=== PATIENT | female | born 1945 | race Hispanic/Latino ===

== ENCOUNTER 2018-07-08 08:11 | Inpatient (IN) | payer MEDICARE, OTHER ==
--- NOTE | 2018-07-01 14:56 | Diagnostic Imaging Report ---
EXAMINATION: CHEST 2 VIEWS INDICATION: Cystocele. Urology surgery preop COMPARISON: None FINDINGS: TUBES and LINES: None. LUNGS: Lungs are well inflated. Lungs are clear. There is no evidence of pneumonia or pulmonary edema. PLEURA: No pleural effusion or pneumothorax. HEART AND MEDIASTINUM: The cardiomediastinal silhouette is unremarkable. BONES AND SOFT TISSUES: No acute osseous lesion. Soft tissues are unremarkable. UPPER ABDOMEN: No free air under the diaphragm. IMPRESSION: No acute thoracic abnormality. Signed by: Dr. Nico Russell M.D. on 07/01/2018 2:52 PM
[2018-07-01 15:08] LABS: BASOPHILS % 0.2 % (0.0-1.0); EOSINOPHILS # (AUTO) 0.1 (0.0-0.4); EOSINOPHILS % 1.1 % (0.0-6.0); HEMATOCRIT 37.4 % (34.2-44.1); HEMOGLOBIN 12.4 g/dL (12.0-16.0); LYMPHOCYTES # (AUTO) 2.2 (1.0-3.2); LYMPHOCYTES % 47.9 % (18.0-39.1); MEAN CORPUSCULAR HEMOGLOBIN 31.5 pg (28-32); MEAN CORPUSCULAR HGB CONC 33.2 g/dL (31-35); MEAN CORPUSCULAR VOLUME 94.9 fL (81-99); MONOCYTES # (AUTO) 0.7 (0.2-0.8); MONOCYTES % 15.1 % (4.4-11.3); NEUTROPHILS # (AUTO) 1.7 (2.1-6.9); NEUTROPHILS % 35.7 % (38.7-80.0); PLATELET COUNT 228 x10e3/uL (140-360); RED BLOOD COUNT 3.94 x10e6/uL (3.6-5.1); RED CELL DISTRIBUTION WIDTH 11.9 % (11.7-14.4)
[~2018-07-08] VITALS: Ht 157.5 cm; Wt 66.3 kg
[~2018-07-08 08:11] MED LIST: CETIRIZINE HCL10 MG PO; IMMUNE SYSTEM; PANTOPRAZOLE SO40 MG PO; PREMPRO 0.625-1 EAC1 PO; SYNTHROID100 MCG PO; [UNRECOGNIZED DRUG - OTHER] PO
--- OUTSIDE RECORDS SUMMARY | 2018-07-08 08:13 | XMS REPORT | Summary of Care ---
Author Author [facility] Outpatient Imaging [facility] [place] Address Unknown Phone Unavailable Encounter HQ Encntr_alias(FIN) [id number] Date(s): 02/09/15 - 02/09/15 [facility] Outpatient Imaging [id number] [place], [place] [address] [phone] Discharge Disposition: Home Attending Physician: Inga Thorne MD Vital Signs No data available for this section Problem List No data available for this section Allergies, Adverse Reactions, Alerts Substance Reaction Severity Status NKDA Active Medications No data available for this section Results No data available for this section Immunizations No data available for this section Procedures No data available for this section Social History No data available for this section Assessment and Plan No data available for this section
--- OUTSIDE RECORDS SUMMARY | 2018-07-08 08:13 | XMS REPORT | Summary of Care ---
Author Organization Unknown Address Unknown Phone Unavailable Encounter HQ Richardr_chaz(DEMAR) [id number] Date(s): 01/17/14 - 01/17/14 [facility] Outpatient Imaging [address] Discharge Disposition: Home Physician Attending: Davion Snow MD Reason for Visit [phone] - HEMATURIA NOS Problem List No data available for this section Allergies, Adverse Reactions, Alerts Substance Reaction Severity Status NKDA Active Medications No data available for this section Medications Administered During Your Visit No data available for this section Immunizations No data available for this section
--- OUTSIDE RECORDS SUMMARY | 2018-07-08 08:13 | XMS REPORT | Clinical Summary ---
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 Active ESTROGEN,CON/M-PROGEST Take by 0 ACET (PREMPRO ORAL) mouth. Active fexofenadine (TATE) Take 180 mg 0 180 MG tablet by mouth daily. Active diphenhydrAMINE Take 25 mg by 0 (BENADRYL) 25 mg tablet mouth every night as needed for Sleep. Active cetirizine (ZYRTEC) 10 MG Take 10 mg by 0 tablet mouth daily. Active Missing or Non-Formulary 0 Medication Active cevimeline (EVOXAC) 30 mg Take 30 mg by 0 capsule mouth 3 (three) times daily. Active cycloSPORINE (RESTASIS) 1 drop 2 0 0.05 % ophthalmic (two) times emulsion daily. Active brimonidine-timolol Place 1 drop 0 (COMBIGAN) 0.2-0.5 % into both ophthalmic solution eyes every 12 (twelve) hours. Active Problems Not on file Social History Date Tobacco Use Types Packs/Day Years Used Never Smoker Alcohol Use Drinks/Week oz/Week Comments No Sex Assigned at Date Recorded Not on file Industry Job Start Date Occupation Not on file Not on file Not on file Travel End Travel History Travel Start No recent travel history available. Last Filed Vital Signs Not on file Plan of Treatment Not on file Results Not on fileafter 07/07/2017 Insurance Payer Benefit Subscriber ID Type Phone Address Plan / Group MEDICARE MEDICARE A xxxxxxxxxx Medicare B xxxxxxxxx Other Govt FOR LIFE (, [place], [facility], etc.)
--- OUTSIDE RECORDS SUMMARY | 2018-07-08 08:13 | XMS REPORT | Summary of Care ---
Author Organization Unknown Address Unknown Phone Unavailable Encounter HQ Richardr_chaz(DEMAR) [id number] Date(s): 02/09/14 - 02/09/14 [facility] Outpatient Imaging [address] Discharge Disposition: Home Physician Attending: Inga Thorne MD Reason for Visit [phone] - ABDMNAL MASS EP Problem List No data available for this section Allergies, Adverse Reactions, Alerts Substance Reaction Severity Status NKDA Active Medications No data available for this section Medications Administered During Your Visit No data available for this section Immunizations No data available for this section
--- OUTSIDE RECORDS SUMMARY | 2018-07-08 08:13 | XMS REPORT | Continuity of Care Document ---
Author Author [facility] Interface Address Unknown Phone Unavailable Problems Problem Status Onset Date Classification Date Reported Comments Source 719.45 - JOINT PAIN-PELV Active 03/07/2015 [facility] 719.41 - JOINT PAIN-SHLD Active 11/11/2013 [facility] V76.12 - SCREEN MAMMOGRA Active 04/06/2012 [facility] 789.09 - ABDMNAL PAIN OT Active 05/27/2011 [facility] Secondary Sjogren's syndrome Active Problem 04/05/2018 [facility] Rheumatoid arthritis with rheumatoid factor Active Problem 04/05/2018 [facility] [place] Osteopenia of multiple sites Active Problem 04/05/2018 [facility] [place] Medications Medication Details Route Status Patient Instructions Ordering Provider Order Date Source Vitamin D (Ergocalciferol) 1 capsule Orally Active 50,000U Orally once a week Reyes 09/26/2018 [facility] [place] SalivaMAX as directed Mouth/Throat Active - Mouth/Throat Reyes 03/30/2018 [facility] [place] Prempro 1 tablet Orally Active 0.45-1.5 MG Orally Once a day Reyesyumiko Hoyos Synthroid 1 tablet every morning on an empty stomach Orally Active 100 mcg Orally Once a day Slater [facility] [place] Salagen 1 tablet NA Active 7.5MG four times a day Slater [facility] [place] Tylenol Arthritis Pain 2 tablets as needed Orally Active 650 MG Orally every 8 hrs Eric [place]oyos Betamethasone Dipropionate 1 application to affected area Externally Active 0.05 % Externally Once a day Eric [place]oyos Padmaja-D 12 Hour 1 tablet Orally Active 60-120 MG Orally Once a week Eric [place] Biotin as directed Orally Active 5 MG/ML Orally [facility] [place] XIIDRA 1 DROP PER EYE NA Active 5% TWICE A DAY Reyesyumiko Hoyos Tylenol Arthritis Pain 1 tablets Orally Active 650 MG Orally as needed Reyesyumiko Hoyos Restasis 1 into affected eye Ophthalmic Active 0.05 % Ophthalmic Twice a day Eric [place]os Vitamin D (Ergocalciferol) TAKE 1 CAPSULE ONCE A WEEK NA Active 50,000U Eric [place] Allergies, Adverse Reactions, Alerts Substance Category Reaction Severity Reaction type Status Date Reported Comments Source Latex<sup>1</sup> Assertion Drug allergy Active 05/27/2011 Data migrated from [employer] on 08/16/15. Originally documented as LATEX. itching LISA Roberto Adverse Reaction Info Not Available Adverse Reaction Active 03/30/2018 [facility] [place] Immunizations Immunization Date Given Site Status Last Updated Comments Source Results Order Name Results Value Reference Range Date Interpretation Comments Source Breast Mammo Diag ERIC w jose armando incl CAD MA Breast Mammo Diag ERIC w jose armando incl CAD MA BILATERAL DIGITAL DIAGNOSTIC MAMMOGRAM 3D/2D WITH CAD: 01/27/2018 CLINICAL: /T85.49xa Other Mechanical Complication Of Breast Prosthesis And Implant, Initial Encounter. Current study was evaluated with a Computer Aided Detection (CAD) system. COMPARISON:Comparison is made to exams dated: 02/13/2016 mammogram, 02/09/2015 mammogram, 04/17/2012 mammogram, and 04/01/2011 mammogram - [facility]. TECHNIQUE: Digital Breast Tomosynthesis was performed and utilized for Interpretation. Current study was also evaluated with a Computer Aided Detection (CAD) system. FINDINGS: The tissue of both breasts is heterogeneously dense, which could obscure detection of small masses. Interval rupture of the left prepectoral saline implant since 02/13/16. Right breast implant is stable. No significant masses, calcifications, or other findings are seen in either breast. There has been no significant interval change. IMPRESSION: BENIGN RECOMMENDATION:There is no mammographic evidence of malignancy. A 1 year screening mammogram is recommended.(01/28/2019) This exam was interpreted at [id number] for JAVI Walker 15. Professional services are provided by the [facility]. Mor Lamb M.D. cm/:01/27/2018 11:36:28 [employer] Professor(s): Maura Costa [facility] letter sent: BI-RADS 1/2 Dense Mammogram BI-RADS: 2 Benign 01/27/2018 - - Read by: Cornelio Gomez MD Dictated Date/time: 01/27/18 11:36 Electronically Signed by: Cornelio Gomez MD 01/27/18 11:36 FINAL REPORT [facility]NA [facility] Digital Mammo Screen Eric MA w jose armando Digital Mammo Screen Eric MA w jose armando - DIGITAL MAMMO SCREEN ERIC MA W JOSE ARMANDO BILATERAL DIGITAL SCREENING MAMMOGRAM 3D/2D WITH CAD: 02/13/2016 CLINICAL: Routine. 2D digital mammographic images and 3D digital tomosynthesis images were obtained in the CC and MLO projections. Current study was evaluated with a Computer Aided Detection (CAD) system. Comparison is made to exams dated: 02/09/2015 mammogram, 04/17/2012 mammogram, 04/01/2011 mammogram - [facility], 10/13/2009 mammogram, 12/06/2006 mammogram and [facility] The tissue of both breasts is heterogeneously dense, which could obscure detection of small masses. Bilateral breast implants are stable. No significant masses, calcifications, or other findings are seen in either breast. There has been no significant interval change. IMPRESSION: NEGATIVE There is no mammographic evidence of malignancy. A 1 year screening mammogram is recommended. Eligio oneil/penrad:02/14/2016 09:34:07 [employer] Professor: Maura Costa [facility] This exam was dictated and interpreted by [id number] for LISA Roa. letter sent: Normal [facility] Mammogram BI-RADS: 1 Negative 02/13/2016 - - Read by: Eligio Iniguez MD Dictated Date/time: 02/14/16 09:34 Electronically Signed by: Eligio Iniguez MD 02/14/16 09:34 FINAL REPORT ANA [facility] Abdomen/Pelvis w IV contrast CT Abdomen/Pelvis w IV contrast CT Study: CT ABDOMEN AND PELVIS WITH CONTRAST Clinical Indication: LLQ ABD PAIN; 3 weeks duration Comparison: CT abdomen pelvis 01/17/2014 Technique: Axial images with sagittal and coronal reconstructions were obtained following oral and nonionic intravenous contrast, Omnipaque [address] Radiation Dose: VWV=684.51 mGy-cm FINDINGS: The lung bases demonstrate mild emphysema and interstitial scarring. Bilateral breast augmentation is noted. There is fatty infiltration of the liver. Stable small hepatic cysts are noted. The gallbladder wall is minimally thickened and irregular suggesting either small polyps. The common duct is not dilated. The spleen appears normal. Stable fat density 1.1 cm left upper pole renal lesion is consistent with angiomyolipoma. There is a possible punctate right lower pole similar lesion. The adrenals and pancreas are not remarkable. Extensive diverticular changes involve the sigmoid and there is moderate constipation. Scattered diverticula are noted elsewhere. No mesenteric inflammatory change is noted. The uterus, adnexa and urinary bladder are not remarkable. No adenopathy or ascites is seen. There is minor spondylosis. IMPRESSION: 1. No acute abnormality. 2. Diverticulosis and constipation. 3. Fatty liver with possible tiny gallbladder polyps. SL: [id number] 09/11/2015 - - Read by: Mt Pham MD Dictated Date/time: 09/11/15 17:02 Electronically Signed by: Mt Pham MD 09/11/15 17:12 FINAL REPORT ANA Bell Chest 2 views DX Chest 2 views DX PA and LATERAL CHEST (2 views) HISTORY: dyspnea. Rheumatoid arthritis. There are no prior studies available for comparison. FINDINGS: The lungs are clear. There are no pleural effusions. The heart and pulmonary vasculature are within normal limits. There are mild degenerative changes involving the thoracic spine. The regional skeleton is otherwise unremarkable. Note is made of bilateral mammary prostheses. CONCLUSION: 1. No active disease. 2. Note is made of bilateral mammary prostheses. Coding: Chest 2 views CPT Code: 29985 SL: 16 Blaise Goldstein M.D. 06/02/2015 - - Read by: Blaise Goldstein MD Dictated Date/time: 06/02/15 15:45 Electronically Signed by: Blaise Goldstein MD 06/02/15 15:46 FINAL REPORT ANA [facility] Spine lumbar wo contrast MRI Spine lumbar wo contrast MRI PROCEDURE : LUMBAR SPINE MRI REASON FOR EXAM: 714.0. Rheumatoid arthritis. 724.02. Spinal stenosis of lumbar region. Note: The patient reports left hip pain. COMPARISON: Abdomen and pelvic CT 01/17/2014. TECHNIQUE: Unenhanced axial and sagittal MR images of the lumbar spine were performed. FINDINGS: Five non-rib bearing lumbar type vertebral bodies are assumed. There is approximately 3 to 4 mm anterolisthesis of L4 on L5. There is no demonstrable spondylolysis. There are anterior marginal osteophytes at T11-T12 and L4-L5. There are multilevel mild Modic type II degenerative changes of the vertebral endplates. There are scattered subcentimeter foci of T1 and T2 hyperintensity in the marrow of the spine which may represent benign hemangiomas or focal fatty marrow change. There is no compression deformity. There is disc desiccation at all levels of the lumbar spine and visualized lower thoracic spine. There is a 1 cm benign angiomyolipoma in the upper pole of the left kidney and 4 mm in the mid to lower pole of the right kidney. There is colonic diverticulosis. The conus medullaris terminates at the level of L2. The visualized lower thoracic spinal cord demonstrates normal signal intensity. T12-L1: Facet arthropathy. No significant foraminal narrowing or spinal stenosis. L1-L2: Mild anterior disc space narrowing. Left posterolateral disc bulging measuring a maximal AP dimension of approximately 3 mm. Facet arthropathy. Mild left foraminal narrowing. No significant right foraminal narrowing or spinal stenosis. L2-L3: Facet arthropathy. No significant foraminal narrowing or spinal stenosis. L3-L4: Facet arthropathy. No significant foraminal narrowing or spinal stenosis. L4-L5: Mild to moderate diffuse disc space narrowing. Anterior and lateral disc bulging. Broad-based posterior disc bulge/protrusion most pronounced in the posterolateral aspects measuring a maximal AP dimension of approximately 4 mm. Facet arthropathy. Thickening of the ligamentum flavum. Mild to moderate bilateral foraminal narrowing most pronounced medially. Moderate spinal stenosis. L5-S1: Mild posterior disc space narrowing. Broad-based posterior disc bulging measuring a maximal AP dimension of approximately 2 to 3 mm. Facet arthropathy. Thickening of the ligamentum flavum. Mild bilateral foraminal narrowing. Mild to moderate spinal stenosis. IMPRESSION: 1. Grade 1 anterolisthesis of L4 on L5. 2. [place] facet arthropathy and disc desiccation. 3. Anterior disc space narrowing, left posterolateral disc bulging and mild left foraminal narrowing at L1-L2. 4. Spondylosis, diffuse disc space narrowing, broad-based posterior disc bulge/protrusion, mild to moderate bilateral foraminal narrowing and moderate spinal stenosis at L4-L5. 5. Posterior disc space narrowing, broad-based posterior disc bulging, mild bilateral foraminal narrowing and mild to moderate spinal stenosis at L5-S1. 6. 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 7. Colonic diverticulosis. SL: 15 03/17/2015 - - Read by: Carlos Vargas MD Dictated Date/time: 03/17/15 21:32 Electronically Signed by: Carlos Vargas MD 03/17/15 22:15 FINAL REPORT LISA Patelland Hip bilat w pelvis and both lat hips DX Hip bilat w pelvis and both lat hips DX REASON FOR EXAM: 719.45. COMPARISON: None. FINDINGS: AP view of the pelvis. Frog-leg view of each hip. Three images are submitted. The hip joint spaces are preserved without demonstrable arthritic change of the hips. There are mild degenerative changes of the pubic symphysis with joint space narrowing and subchondral sclerosis. There is facet arthropathy of the visualized lower lumbar spine. The sacroiliac joints are unremarkable. There is no demonstrable fracture, dislocation or osseous lesion. IMPRESSION: 1. Degenerative changes of the pubic symphysis and visualized lower lumbar spine. 2. Otherwise unremarkable views of the pelvis and hips. SL: 15 03/07/2015 - - Read by: Carlos Vargas MD Dictated Date/time: 03/07/15 17:15 Electronically Signed by: Carlos Vargas MD 03/07/15 17:22 FINAL REPORT LISA PEREZ [place] Digital Mammo Screen Eric MA w jose armando Digital Mammo Screen Eric MA w jose armando - DIGITAL MAMMO SCREEN ERIC MA W JOSE ARMANDO BILATERAL DIGITAL SCREENING MAMMOGRAM 3D/2D WITH CAD: 02/09/2015 CLINICAL: Routine. 2D digital mammographic images and 3D digital tomosynthesis images were obtained in the CC and MLO projections. Current study was evaluated with a Computer Aided Detection (CAD) system. Comparison is made to exams dated: 04/17/2012 mammogram, 04/01/2011 mammogram - [facility] and [facility]. The tissue of both breasts is heterogeneously dense, which could obscure detection of small masses. Bilateral saline prepectoral breast implants are noted and imaged with routine and implant displaced views. Implants obscure breast parenchyma making mammographic interpretation difficult. There are benign appearing calcifications in both breasts. There also are benign appearing densities in both breasts. No significant masses, calcifications, or other findings are seen in either breast. There has been no significant interval change. IMPRESSION: BENIGN There is no mammographic evidence of malignancy. A 1 year screening mammogram is recommended. Ronnie Gaines M.D. ap/penrad:02/10/2015 10:17:37 [employer] Professor: Maura Costa [facility] This exam was dictated and interpreted by [id number] for JAVI Walker 15. letter sent: Normal [facility] Mammogram BI-RADS: 2 Benign 02/09/2015 - - Read by: Ronnie Gaines MD Dictated Date/time: 02/10/15 10:17 Electronically Signed by: Ronnie Gaines MD 02/10/15 10:17 FINAL REPORT LISA Bell Pelvis Transvaginal US Pelvis Transvaginal US REASON FOR EXAM: Pelvic mass. COMPARISON: Abdomen and pelvic CT 01/17/2014. Pelvic ultrasound 06/11/2011. FINDINGS: Transvaginal ultrasound of the pelvis was performed. Static images are submitted. The uterus measures 7.2 x 3.1 x 4 cm (length x AP x width). There is a 0.84 cm intramural fibroid in the left uterine fundus, new from the comparison pelvic ultrasound. The maximal endometrial stripe thickness is 0.28 cm. The patient is postmenopausal. There are multiple subcentimeter cervical nabothian cysts which likely account for the findings of the cervix on the comparison pelvic CT. There is no demonstrable cervical mass. The ovaries are not seen. There is no demonstrable adnexal mass or pelvic free fluid. IMPRESSION: 1. Solitary subcentimeter uterine leiomyoma. 2. Multiple subcentimeter cervical nabothian cysts. 3. Nonvisualization of the ovaries. 4. Otherwise unremarkable transvaginal pelvic ultrasound. SL: 15 02/09/2014 - - Read by: Carlos Vargas MD Dictated Date/time: 02/09/14 13:35 Electronically Signed by: Carlos Vargas MD 02/09/14 13:44 FINAL REPORT LISA Bell Abdomen/Pelvis w/wo IV contrast CT Abdomen/Pelvis w/wo IV contrast CT REASON FOR EXAM: 599.70 Hematuria. COMPARISON: Reports of an MRI of the abdomen 12/26/2011, abdomen ultrasound 06/11/2011 and pelvic ultrasound 06/11/2011 were reviewed. TECHNIQUE: Unenhanced and enhanced axial helical CT images of the abdomen and pelvis were performed. Postcontrast images were performed with IV contrast only. Postcontrast reformatted coronal and sagittal images were also reviewed. ABDOMEN / PELVIC CT FINDINGS: The visualized lung bases are remarkable for mild elevation of the right diaphragm. Dependent subsegmental atelectasis. Minimal subsegmental atelectasis versus scarring in the right middle lobe and lingula. Normal heart size. There is a 1.2 cm fat containing angiomyolipoma in the upper poor cortex of the left kidney. There is a 3 mm low-density cortical lesion in the lower pole of the right kidney which may represent a cyst or angiomyolipoma but is too small to adequately characterize. There are additional tiny low-density renal cortical lesions which may represent cysts but are too small to adequately characterize: 2 mm in the mid to upper pole of the right kidney, 3 mm in the mid to upper pole of the left kidney, 3 mm in the mid left kidney and 2 mm in the lower pole of the left kidney. The kidneys are otherwise unremarkable. No demonstrable urinary tract calculus. No hydronephrosis or pyelonephritis. There a few low-density hepatic lesions likely cysts but too small to adequately characterize the largest measuring 7 mm in the posterior segment of the right hepatic lobe. The gallbladder, pancreas, spleen and adrenal glands are unremarkable. There is a nonobstructive bowel gas pattern. The stomach is nondistended limiting evaluation of the gastric yan. Scattered colonic diverticulosis without demonstrable acute diverticulitis. The appendix is normal. There is no free intraperitoneal air or ascites. There is fullness at the junction of the cervix and lower uterine segment. A mass in this location measuring approximately 4.5 cm cannot be excluded (e.g. images 76 through 79 series 4). There is a 7 mm enhancing nodule in the anterior uterine body likely a fibroid. There are a few tiny foci of air likely within the superior aspect of the vagina. There is no demonstrable abnormality of the adnexa or partially distended urinary bladder. The caliber of the abdominal aorta is within normal limits. There is no pathologic retroperitoneal lymphadenopathy. Bilateral breast implants are partially imaged. There is grade 1 anterolisthesis of L4 on L5. There are degenerative changes of the spine. There is spinal stenosis at L4-L5 secondary to degenerative changes and a posterior disc bulge/protrusion. This would be better assessed with a lumbar spine MRI. There are mild degenerative changes of the pubic symphysis. IMPRESSION: 1. There is a 1.2 cm angiomyolipoma in the upper pole of the left kidney. 2. There are several subcentimeter low-density renal cortical lesions which are too small to adequately characterize. A benign etiology is favored. 3. No demonstrable urinary tract calculus. 4. There are a few subcentimeter low-density hepatic lesions likely cysts but too small to adequately characterize. 5. Colonic diverticulosis. 6. There is fullness at the junction of the cervix and lower uterine segment. A mass in this location cannot be excluded. Further evaluation may be obtained with a transvaginal pelvic ultrasound. 7. Subcentimeter uterine fibroid. 8. Osseous findings as described above. Please correlate clinically and consider follow-up imaging as indicated. SL: 15 01/17/2014 - - Read by: Carlos Vargas MD Dictated Date/time: 01/17/14 15:06 Electronically Signed by: Carlos Vargas MD 01/17/14 16:04 FINAL REPORT ANA Bell Shoulder series Shoulder series REASON FOR EXAM: Shoulder pain. COMPARISON: None. FINDINGS: Two views of the right shoulder were performed with internal and external rotation. There is no demonstrable fracture, dislocation, arthritic change, osseous lesion or soft tissue calcification. IMPRESSION: Unremarkable right shoulder series. SL: 15 11/11/2013 - - Read by: Carlos Vargas MD Dictated Date/time: 11/11/13 16:43 Electronically Signed by: Carlos Vargas MD 11/11/13 16:49 FINAL REPORT ANA Bell Vital Signs Vital Sign Value Date Comments Source Weight 141.5 03/30/2018 [facility] Height 60 03/30/2018 [facility] [place] Temperature Oral (F) 97.4 F 03/30/2018 [facility] [place] Heart Rate 70 03/30/2018 [facility] [place] Diastolic (mm Hg) 62 03/30/2018 [facility] [place] Systolic (mm Hg) 112 03/30/2018 [facility] [place] Weight 137 08/12/2017 [facility] [place] Height 61 08/12/2017 [facility] [place] Temperature Oral (F) 98.1 F 08/12/2017 [facility] [place] Heart Rate 72 08/12/2017 [facility] [place] Diastolic (mm Hg) 70 08/12/2017 [facility] [place] Systolic (mm Hg) 132 08/12/2017 [facility] [place] Encounters Location Location Details Encounter Type Encounter Number Reason For Visit Attending Provider ADM Date DC Date Status Source OD [id number] 789.09 - ABDMNAL PAIN OT NANCY MOSQUEDA 06/11/2011 Active MH [facility] OD [id number] V76.12 - SCREEN MAMMOGRA [facility]ED[facility] [id number] Travis Chaidez 11/11/2013 11/12/2013 [facility] [id number] Davion Snwo 01/17/2014 01/18/2014 [facility] [id number] Dolar Patolia 02/09/2014 02/10/2014 [facility] [id number] Dolar Patolia 02/09/2015 02/10/2015 [facility] [id number] [facility] 03/07/2015 03/08/2015 [facility] [id number] [facility] 03/17/2015 03/18/2015 [facility] [id number] Travis Orsal 06/02/2015 06/03/2015 [facility] [id number] Lester Inamdar 09/11/2015 09/12/2015 [facility] [id number] Dolar Patolia 02/13/2016 02/14/2016 [facility] Procedures Procedure Code Date Perfomer Comments Source
--- OUTSIDE RECORDS SUMMARY | 2018-07-08 08:13 | XMS REPORT | CCD ---
Author Author Auto Generated Organization [facility] Outpatient Imaging [place] Address Unknown Phone Unavailable Care Team Providers Care Drawer Liner Name Role Phone Inga Thorne CP Allergies, Adverse Reactions, Alerts Substance Reaction Status NKDA Active
--- OUTSIDE RECORDS SUMMARY | 2018-07-08 08:13 | XMS REPORT | Summary of Care ---
Author Organization Unknown Address Unknown Phone Unavailable Encounter HQ Richardr_chaz(DEMAR) [id number] Date(s): 11/11/13 - 11/11/13 [facility] Outpatient Imaging [address] Discharge Disposition: Home Physician Attending: Travis Chaidez MD Reason for Visit 719.41 - JOINT PAIN-SHLD Problem List No data available for this section Allergies, Adverse Reactions, Alerts Substance Reaction Severity Status NKDA Active Medications No data available for this section Medications Administered During Your Visit No data available for this section Immunizations No data available for this section
--- OUTSIDE RECORDS SUMMARY | 2018-07-08 08:13 | XMS REPORT | CCD ---
Author Author Auto Generated Organization [facility] Outpatient Imaging [place] Address Unknown Phone Unavailable Care Team Providers Care Pro Shop Attendant Name Role Phone Inga Thorne CP Allergies, Adverse Reactions, Alerts Substance Reaction Status NKDA Active
--- OUTSIDE RECORDS SUMMARY | 2018-07-08 08:14 | XMS REPORT ---
Author Author Elsa Reyes [facility] eClinicalWorks Address Unknown Phone Unavailable Care Team Providers Care Manager Of Digital Name Role Phone Elsa Reyes Unavailable Allergies, Adverse Reactions, Alerts Substance Reaction Event Type N.K.D.A. Info Not Available Non Drug Allergy Problems Problem Type Condition Code Onset Dates Condition Status Problem Secondary Sjogren's syndrome M35.00 Active Problem Rheumatoid arthritis with rheumatoid factor M05.70 Active Problem Osteopenia of multiple sites M85.89 Active Assessment Secondary Sjogren's syndrome M35.00 Active Assessment Rheumatoid arthritis with rheumatoid factor M05.70 Active Medications Medication Code System Code Instructions Start Date End Date Status Dosage Prempro ND 40307966889 0.45-1.5 MG Orally Once a day Active 1 tablet Synthroid ND 49726985807 100 mcg Orally Once a day Active 1 tablet every morning on an empty stomach Salagen ND 60422899625 7.5MG four times a day Active 1 tablet Tylenol Arthritis Pain NDC 0 650 MG Orally every 8 hrs Active 2 tablets as needed Betamethasone Dipropionate ND 09940694876 0.05 % Externally Once a day Active 1 application to affected area SalivaMAX ND 72799699455 - Mouth/Throat Mar 30, 2018 Active as directed Padmaja-D 12 Hour ND 74430123344 60-120 MG Orally Once a week [place] [address] 5 MG/ML Orally Active as directed XIIDRA NDC 0 5% TWICE A DAY Active 1 DROP PER EYE Vitamin D (Ergocalciferol) ND 63422179961 50,000U Orally once a week September 26, 2018 Active 1 capsule Vital Signs Date/Time: Mar 30, 2018 BMI 27.63 Index Weight 141.5 lbs Height 60 in Temperature 97.4 F Cardiac Monitoring Heart Rate 70 /min Blood Pressure Diastolic 62 mm Hg Blood Pressure Systolic 112 mm Hg Results No Known Results Summary Purpose eClinicalWorks Submission
--- OUTSIDE RECORDS SUMMARY | 2018-07-08 08:14 | XMS REPORT ---
Author Author José Miguel Hoyos Organization eClinicalWorks Address Unknown Phone Unavailable Care Team Providers Care Hose Cementer Name Role Phone José Miguel Hoyos CP Unavailable Allergies No Known Allergies Problems Problem Type Condition Code Onset Dates Condition Status Problem Secondary Sjogren's syndrome M35.00 Active Problem Rheumatoid arthritis with rheumatoid factor M05.70 Active Problem Osteopenia of multiple sites M85.89 Active Medications No Known Medications Results No Known Results Summary Purpose eClinicalWorks Submission
--- OUTSIDE RECORDS SUMMARY | 2018-07-08 08:14 | XMS REPORT | Summary of Care ---
Author Author [facility] Outpatient Imaging [facility] [place] Address Unknown Phone Unavailable Encounter HQ Encntr_alias(FIN) [id number] Date(s): 09/11/15 - 09/11/15 [facility] [place] [id number] [place] [address], [address] [place], [place] [address]303 [phone] Discharge Disposition: Home Attending Physician: Lester Whitehead MD Vital Signs No data available for this section Problem List No data available for this section Allergies, Adverse Reactions, Alerts Substance Reaction Severity Status Latex1 Active NKDA Active 1Data migrated from [employer] on 08/16/15. Originally documented as LATEX. itching Medications No data available for this section Results No data available for this section Immunizations No data available for this section Procedures No data available for this section Social History No data available for this section Assessment and Plan No data available for this section
--- OUTSIDE RECORDS SUMMARY | 2018-07-08 08:14 | XMS REPORT ---
Author Author José Miguel Hoyos Organization eClinicalWorks Address Unknown Phone Unavailable Care Team Providers Care Bobbin Hauler Name Role Phone José Miguel Hoyos CP Unavailable Allergies No Known Allergies Problems Problem Type Condition Code Onset Dates Condition Status Problem Secondary Sjogren's syndrome M35.00 Active Problem Rheumatoid arthritis with rheumatoid factor M05.70 Active Problem Osteopenia of multiple sites M85.89 Active Medications No Known Medications Results No Known Results Summary Purpose eClinicalWorks Submission
--- OUTSIDE RECORDS SUMMARY | 2018-07-08 08:14 | XMS REPORT | Summary of Care ---
Author Author [facility] Outpatient Imaging [facility] [place] Address Unknown Phone Unavailable Encounter HQ Encntr_alias(FIN) [id number] Date(s): 06/02/15 - 06/02/15 [facility] Outpatient Imaging [place] [address] [place], [place] [address]074 [phone] Discharge Disposition: Home Attending Physician: Travis Chaidez MD Vital Signs No data available for [...]
--- OUTSIDE RECORDS SUMMARY | 2018-07-08 08:14 | XMS REPORT | Summary of Care ---
Author Author [facility] Outpatient Imaging [facility] [place] Address Unknown Phone Unavailable Encounter HQ Encntr_alias(FIN) [id number] Date(s): 02/13/16 - 02/13/16 [facility] Outpatient Imaging [place] [address] [place] [address], [address] [place], [place] [address]078 [phone] Discharge Disposition: Home or Self Care Attending Physician: Inga Thorne MD Vital Signs No data available for this section Problem List No data available for this section Allergies, Adverse Reactions, Alerts Substance Reaction Severity Status Latex1 Active NKDA Active 1Data migrated from [employer] on 08/16/15. Originally documented as LATEX. itching Medications No data available for this section Results No data available for this section Immunizations No data available for this section Procedures No data available for this section Social History No data available for this section Assessment and Plan No data available for this section
--- OUTSIDE RECORDS SUMMARY | 2018-07-08 08:14 | XMS REPORT | Summary of Care ---
Author Author [facility] Outpatient Imaging [facility]patient [facility] [place] Address Unknown Phone Unavailable Encounter HQ Encntr_alias(FIN) [id number] Date(s): 03/17/15 - 03/17/15 [facility] Outpatient Imaging [place] [address] [place], [place] [phone] Discharge Disposition: Home Attending Physician: José Miguel Hoyos MD Vital Signs No data available for [...]
--- OUTSIDE RECORDS SUMMARY | 2018-07-08 08:14 | XMS REPORT ---
Author Author Elsa Reyes [facility] eClinicalWorks Address Unknown Phone Unavailable Care Team Providers Care Convertible Top Installer Name Role Phone Elsa Reyes Unavailable Allergies, Adverse Reactions, Alerts Substance Reaction Event Type N.K.D.A. Info Not Available Non Drug Allergy Problems Problem Type Condition Code Onset Dates Condition Status Problem Secondary Sjogren's syndrome M35.00 Active Problem Rheumatoid arthritis with rheumatoid factor M05.70 Active Problem Osteopenia of multiple sites M85.89 Active Assessment Rheumatoid arthritis with rheumatoid factor M05.70 Active Medications Medication Code System Code Instructions Start Date End Date Status Dosage Tylenol Arthritis Pain ND 57317542866 650 MG Orally as needed Active 1 tablets Restasis [facility] 85670255451 0.05 % Ophthalmic Twice a day Active 1 into affected eye Synthroid ND 47435857042 100 mcg Orally Once a day Active 1 tablet every morning on an empty stomach Betamethasone Dipropionate ND 05785767284 0.05 % Externally Once a day Active 1 application to affected area Salagen [facility] 85626668665 7.5MG Active TAKE 1 TABLET ONCE TO THREE [place] [address] 5 MG/ML Orally Active as directed Padmaja-D 12 Hour ND 06892492488 60-120 MG Orally Once a week Active 1 tablet Vitamin D (Ergocalciferol) [facility] 21286668259 50,000U Active TAKE 1 CAPSULE ONCE A WEEK Prempro ND 41649577152 0.45-1.5 MG Orally Once a day Active 1 tablet Vital Signs Date/Time: Aug 12, 2017 BMI 25.88 Index Weight 137 lbs Height 61 in Temperature 98.1 F Cardiac Monitoring Heart Rate 72 /min Blood Pressure Diastolic 70 mm Hg Blood Pressure Systolic 132 mm Hg Results No Known Results Summary Purpose eClinicalWorks Submission
--- OUTSIDE RECORDS SUMMARY | 2018-07-08 08:14 | XMS REPORT ---
Author Author [facility] Address Unknown Phone Unavailable Care Team Providers Care Gullet Slitter Name Role Phone STEFAN GARCIA Unavailable Unavailable Problems This patient has no known problems. Allergies, Adverse Reactions, Alerts This patient has no known allergies or adverse reactions. Medications This patient has no known medications. Results Test Description Test Time Test Comments Text Results Atomic Results Result Comments CHEST 2 VIEWS 2018-07-01 14:52:00 [place] [address] Patient Name: JORDAN LOVETT MR #: [id number] : 1945 Age/Sex: 72/F Req #: [id number] Adm Physician: Ordered by: STEFAN GARCIA MD Report #: [id number] Location: OR Room/Bed: Procedure: [id number] DX/CHEST 2 VIEWS Exam Date: 07/01/18 Exam Time: 1430 REPORT STATUS: Signed EXAMINATION: CHEST 2 VIEWS INDICATION: Cystoce le. Urology surgery preop COMPARISON: None FINDINGS: TUBES and LINES: None. LUNGS: Lungs are well inflated. Lungs are clear. There is no evidence of pneumonia or pulmonary edema. PLEURA: No pleural effusion or pneumothorax. HEART AND MEDIASTINUM: The cardiomediastinal silhouette is unremarkable. BONES AND SOFT TISSUES: No acute osseous lesion. Soft tissues are unremarkable. UPPER ABDOMEN: No free air under the diaphragm. IMPRESSION: No acute thoracic abnormality. Signed by: Dr. Nico Russell M.D. on 07/01/2018 2:52 PM Dictated By: NICO RUSSELL MD, MD [id number] Transcribed By: OFE on 07/01/181451 COPY TO: STEFAN GARCIA MD
--- OUTSIDE RECORDS SUMMARY | 2018-07-08 08:14 | XMS REPORT | Summary of Care ---
Author Author [facility] Outpatient Imaging [facility] [place] Address Unknown Phone Unavailable Encounter HQ Encntr_alias(FIN) [id number] Date(s): 03/07/15 - 03/07/15 [facility] Outpatient Imaging [place] [address] [place], [place] [address]955 [phone] Discharge Disposition: Home Attending Physician: José Miguel [...]
[2018-07-08] MEDS ORDERED: CLINDAMYCIN 300MG 50 ML IV ONE (08:21)
[2018-07-08] MEDS ORDERED: CEFOXITIN SOD 1 GM VIAL ONE (08:21)
[2018-07-08] MEDS ORDERED: IOPAMIDOL 610MG/1ML 300 MG/ML VIAL IV ONE (11:18)
[2018-07-08] MEDS ORDERED: BACITRACIN 50,000 UNIT VIAL ONE (11:18)
[2018-07-08] MEDS ORDERED: BACITRACIN ZINC 15 GM OINT ONE (11:18)
[2018-07-08] MEDS ORDERED: BUPIVACAINE 0.25%/EPI 30ML SDV INJ ONE (11:18)
[2018-07-08] MEDS ORDERED: MORPHINE SULFATE 1 MG/ML 30ML PCA IV PRN (13:30)
[2018-07-08] MEDS ORDERED: NALOXONE HCL INJ 0.4 MG/ML AMP IV PRN (13:30)
[2018-07-08] MEDS ORDERED: DIPHENHYDRAMINE HCL 25 MG CAP PO PRN (13:30)
[2018-07-08] MEDS ORDERED: ONDANSETRON HCL INJ 2MG/ML 2ML 2 MG/ML VIAL IV PRN (13:30)
--- OUTSIDE RECORDS SUMMARY | 2018-07-08 14:07 | XMS REPORT | Clinical Summary ---
Author Author [facility] Address Unknown Phone Unavailable Care Team Providers Care Gas Well Drilling Manager Name Role Phone Travis Chaidez PCP Allergies [...] xxxxxxxxx Other [facility] (, [facility], [facility], etc.)
[2018-07-08] MEDS ORDERED: MORPHINE SULFATE 1 MG/ML 30ML PCA ONE (15:30)
[2018-07-08] MEDS ORDERED: SEVOFLURANE INHAL SOLN 250 ML PEN BTL ONE (17:58)
[2018-07-08] MEDS ORDERED: DEXAMETHASONE SOD PHOS INJ 4 MG/ML VIAL ONE (17:58)
[2018-07-08] MEDS ORDERED: PROPOFOL IV EMULSION 10 MG/ML 20 ML VIAL ONE (17:58)
[2018-07-08] MEDS ORDERED: LIDOCAINE HCL 2% LOCAL INJ 5 ML SDV VIAL INJ ONE (17:58)
[2018-07-08] MEDS ORDERED: ONDANSETRON HCL INJ 2MG/ML 2ML 2 MG/ML VIAL ONE (17:58)
[2018-07-08] MEDS ORDERED: FENTANYL CITRATE/PF 100MCG/2 ML INJ ONE (18:09)
[2018-07-08] MEDS ORDERED: MIDAZOLAM HCL 2 MG/2 ML VIAL ONE (18:09)
--- NOTE | 2018-07-08 18:37 | NUR ---
Received patient via stretcher from PACU. AAOX4 to time, person, place, situation. Respirations even and unlabored. O2 2L NC. Oriented patient to room. Instructed to use call light for assistance. Voiced understanding. Will continue to monitor.
--- NOTE | 2018-07-08 19:00 | NUR ---
Patient visited in room during nursing rounds. Patient alert and oriented x3. On ELECTRO PLATER Morphine s/p Cystocele repair with graft and sling. 2 Band aid on left and right groin clean and dry. Vaginal packing in place. Harrison in place. On IVf (D5 1/2NS with 20meqKCL at 125ml/hr). Patient in stable condition. Call quinones within reach.
--- NOTE | 2018-07-08 19:23 | NUR ---
Report given to oncoming nurse of patient's status. No s/s of acute distress noted.
[2018-07-08 20:00] VITALS: BP 123/57
[2018-07-08 20:30] VITALS: BP 123/57
[2018-07-08] MEDS: DOCUSATE SODIUM 100 MG CAP PO SCH (21:00)
[2018-07-08] MEDS ORDERED: CEFOXITIN 2GM/ D5W 50ML 50 ML IV SCH (21:00)
[2018-07-08] MEDS: CEFOXITIN SODIUM IV SCH (21:15)
[2018-07-08] MEDS: SODIUM CHLORIDE 0.9% IV SCH (21:15)
[2018-07-08] MEDS: D5.45%NS/KCL 20MEQ 1,000 ML IV SCH (21:29)
[2018-07-09] VITALS (7 sets, daily range): BP systolic 93–126; BP diastolic 54–59
[2018-07-09] MEDS ORDERED: CETIRIZINE HCL10 MG PO (04:56)
[2018-07-09] MEDS: D5.45%NS/KCL 20MEQ 1,000 ML IV SCH (05:39)
[2018-07-09 05:56] LABS: BASOPHILS % 0.2 % (0.0-1.0); EOSINOPHILS % 0.2 % (0.0-6.0); HEMATOCRIT 28.4 % (34.2-44.1); HEMOGLOBIN 9.4 g/dL (12.0-16.0); LYMPHOCYTES # (AUTO) 1.7 (1.0-3.2); MEAN CORPUSCULAR HGB CONC 33.1 g/dL (31-35); MEAN CORPUSCULAR VOLUME 93.7 fL (81-99); MONOCYTES # (AUTO) 0.8 (0.2-0.8); MONOCYTES % 12.3 % (4.4-11.3); PLATELET COUNT 174 x10e3/uL (140-360); RED BLOOD COUNT 3.03 x10e6/uL (3.6-5.1); RED CELL DISTRIBUTION WIDTH 11.9 % (11.7-14.4)
[2018-07-09 06:26] LABS: ANION GAP 7.2 mmol/L (8-16); BLOOD UREA NITROGEN 7 mg/dL (7-26); BUN/CREATININE RATIO 10 (6-25); CALCIUM 7.8 mg/dL (8.4-10.2); CARBON DIOXIDE 25 mmol/L (22-29); CHLORIDE 107 mmol/L (98-107); CREATININE, SERUM 0.67 mg/dL (0.57-1.11); EST GLOMERULAR FILTRATION RATE > 60 ML/MIN (60-); GLUCOSE 160 mg/dL (74-118); POTASSIUM 4.2 mmol/L (3.5-5.1); SODIUM 135 mmol/L (136-145)
--- NOTE | 2018-07-09 07:00 | NUR ---
Received patient resting in bed, side rails upx2, call light within reach. AAOX4 to time, person, place, situation. Respirations even and unlabored. On morphine FLASH DEVELOPER pump. Instructed patient to use call light for assistance. Voiced understanding. Will continue to monitor.
[2018-07-09] MEDS: CELECOXIB 100 MG CAP PO SCH ×2 (08:15→16:35)
[2018-07-09] MEDS ORDERED: [UNRECOGNIZED DRUG - OTHER] PO SCH (09:00)
[2018-07-09] MEDS: PANTOPRAZOLE SOD 40 MG TABEC PO SCH (09:00)
[2018-07-09] MEDS ORDERED: [UNRECOGNIZED DRUG - OTHER] PO SCH (09:00)
[2018-07-09] MEDS: [UNRECOGNIZED DRUG - OTHER] PO SCH (09:01)
[2018-07-09] MEDS: LEVOTHYROXINE SODIUM 100 MCG TAB PO SCH (09:01)
[2018-07-09] MEDS: [UNRECOGNIZED DRUG - OTHER] PO SCH (09:01)
[2018-07-09] MEDS: LORATADINE 10 MG TAB PO SCH ×3 (09:01→21:00)
[2018-07-09] MEDS: SODIUM CHLORIDE 0.9% IV SCH ×2 (09:02→21:00)
[2018-07-09] MEDS: CEFOXITIN SODIUM IV SCH ×2 (09:02→21:00)
[2018-07-09] MEDS: DOCUSATE SODIUM 100 MG CAP PO SCH ×2 (09:02→16:35)
--- NOTE | 2018-07-09 10:10 | NUR ---
Packing discontinued as ordered. Tolerated well. Denies discomfort
--- NOTE | 2018-07-09 15:36 | NUR ---
CASE MANAGEMENT INITIAL ASSESSMENT Therapeutic Strategy Lead to bedside to discuss plan of care with patient/family. CM/SW role and care transitions discussed. Anticipated discharge plan discussed along with duration of care. CM discussed patients right to make decisions in care. CM/SW work hours given. Patient lives: PATIENT LIVES WITH OSVALDO [facility] [place] [address] Admit/Transfer: OR POA/Emergency contact: OSVALDO LOVETT- [phone] Current/Previous Home Health: NONE AT THIS TIME PCP/Follow-up Care: DR. NATHALIE HERNANDEZ Current/Previous DME: PATIENT WITH [facility] AT HOME Other Services: NONE AT THIS TIME Employment Status: RETIRED Areas of Concerns: NONE Referral Needs: NONE Education Needs: N/A IMM/DICKEY given and signed (if applicable): IMM ON ADMISSION Goal for discharge: DISCHARGE HOME WITH NO NEEDS CM left business card at the bedside with contact information. Name and number was also written on the patients whiteboard. Patient verbalized understanding of discussion. CM will follow-up with ongoing discharge and transition of care needs.
[2018-07-09] MEDS: HYDROCODONE/APAP 7.5MG-325MG 1 EA TAB PO PRN (18:51)
--- NOTE | 2018-07-09 19:12 | NUR ---
Patient visited in room during nursing rounds. Patient alert and oriented x3. Post OP Day 1 s/p Cystocele repair with graft and sling. 2 Band aid on left and right groin clean and dry. Harrison in place. Patient in stable condition. Call quinones within reach.
[2018-07-09] MEDS ORDERED: SODIUM CHLORIDE 0.9% 250ML 250 ML ONE (20:44)
[2018-07-10] VITALS (7 sets, daily range): BP systolic 92–139; BP diastolic 53–62
[2018-07-10] MEDS: LEVOTHYROXINE SODIUM 100 MCG TAB PO SCH (06:00)
[2018-07-10 06:03] LABS: BASOPHILS % 0.3 % (0.0-1.0); EOSINOPHILS % 0.5 % (0.0-6.0); HEMATOCRIT 29.7 % (34.2-44.1); HEMOGLOBIN 9.7 g/dL (12.0-16.0); LYMPHOCYTES # (AUTO) 2.2 (1.0-3.2); LYMPHOCYTES % 30.1 % (18.0-39.1); MEAN CORPUSCULAR HEMOGLOBIN 30.9 pg (28-32); MEAN CORPUSCULAR HGB CONC 32.7 g/dL (31-35); MEAN CORPUSCULAR VOLUME 94.6 fL (81-99); MONOCYTES # (AUTO) 0.8 (0.2-0.8); MONOCYTES % 10.6 % (4.4-11.3); NEUTROPHILS # (AUTO) 4.3 (2.1-6.9); NEUTROPHILS % 58.2 % (38.7-80.0); PLATELET COUNT 193 x10e3/uL (140-360); RED BLOOD COUNT 3.14 x10e6/uL (3.6-5.1); RED CELL DISTRIBUTION WIDTH 12.1 % (11.7-14.4)
[2018-07-10 06:25] LABS: ANION GAP 9.5 mmol/L (8-16); BLOOD UREA NITROGEN 7 mg/dL (7-26); CALCIUM 8.3 mg/dL (8.4-10.2); CARBON DIOXIDE 25 mmol/L (22-29); CHLORIDE 105 mmol/L (98-107); GLUCOSE 112 mg/dL (74-118); POTASSIUM 3.5 mmol/L (3.5-5.1); SODIUM 136 mmol/L (136-145)
[2018-07-10 06:46] LABS: BUN/CREATININE RATIO 9 (6-25); CREATININE, SERUM 0.69 mg/dL (0.57-1.11); EST GLOMERULAR FILTRATION RATE > 60 ML/MIN (60-)
[2018-07-10] MEDS: CELECOXIB 100 MG CAP PO SCH ×2 (08:00→15:59)
--- NOTE | 2018-07-10 08:30 | NUR ---
PT TAKING HER OWN MEDICATION, REPORTS SHE LET PHYSICIAN KNOW ALREADY.
[2018-07-10] MEDS: CEFOXITIN SODIUM IV SCH ×2 (08:37→21:00)
[2018-07-10] MEDS: SODIUM CHLORIDE 0.9% IV SCH ×2 (08:37→21:00)
--- NOTE | 2018-07-10 08:37 | NUR ---
PT RECEIVED SITTING UP IN BED, AA/O X3, NO C/O AT PRESENT. ASSESSMENT COMPLETE, VSS. RODAS CATH TO BSD, CLEAR URINE NOTED. CONTINUES IVABT. PT AMBULATES TOLERATED. DISCUSSED PLAN FOR THE DAY
[2018-07-10] MEDS: [UNRECOGNIZED DRUG - OTHER] PO SCH (09:00)
[2018-07-10] MEDS: DOCUSATE SODIUM 100 MG CAP PO SCH ×2 (09:00→16:00)
[2018-07-10] MEDS: [UNRECOGNIZED DRUG - OTHER] PO SCH (09:00)
[2018-07-10] MEDS: PANTOPRAZOLE SOD 40 MG TABEC PO SCH (09:00)
[2018-07-10] MEDS ORDERED: POTASSIUM CHLORIDE 10MEQ EA PO ONE (09:30)
--- NOTE | 2018-07-10 09:30 | NUR ---
REPORTS 2 SANITARY PAD CHANGES AT THIS TIME, WILL MONITOR
[2018-07-10] MEDS: HYDROCODONE/APAP 7.5MG-325MG 1 EA TAB PO PRN (12:47)
--- NOTE | 2018-07-10 15:15 | NUR ---
Removed link at this time. Patient tolerated well. Tip intact when removed. 800ml of clear urine removed from bag prior to removal
--- NOTE | 2018-07-10 19:10 | NUR ---
REPORT RECEIVED FROM OFF GOING NURSE, PT RESTING IN BED ALERT AND ORIENTED,NO DISTRESS NOTED, DENIES NEEDS, INSTRUCTED TO INFORM STAFF OF VOID FOR ORDERED POST RESIDUAL BLADDER SCAN PER ORDER, PT VOICES UNDERSTANDING, CALL LIGHT IN REACH, INSTRUCTED TO CALL WITH NEEDS
[2018-07-10] MEDS: LORATADINE 10 MG TAB PO SCH (21:00)
--- NOTE | 2018-07-10 22:15 | NUR ---
PTs VOID POST RESIDUAL 237ML, PT DENIES DISCOMFORT, MILD DISTENTION NOTED, PT STATES THAT SHE WANTS TO TRY VOIDING AGAIN FOR REPEAT POST RESIDUAL, PRIOR TO RODAS REINSERTION PER ORDER
[2018-07-11] VITALS: BP 97/53
[2018-07-11 04:00] VITALS: BP 102/64
[2018-07-11] MEDS: LEVOTHYROXINE SODIUM 100 MCG TAB PO SCH (05:17)
[2018-07-11] MEDS: HYDROCODONE/APAP 7.5MG-325MG 1 EA TAB PO PRN (05:18)
--- NOTE | 2018-07-11 05:30 | NUR ---
PTs POST VOID RESIDUAL 191 ML, NO DISTRESS NOTED, INDWELLING RODAS REINSERTED, NO COMPLICATIONS NOTED
[2018-07-11 06:25] LABS: BASOPHILS % 0.6 % (0.0-1.0); EOSINOPHILS # (AUTO) 0.1 (0.0-0.4); EOSINOPHILS % 1.3 % (0.0-6.0); HEMATOCRIT 25.5 % (34.2-44.1); HEMOGLOBIN 9.2 g/dL (12.0-16.0); LYMPHOCYTES # (AUTO) 2.1 (1.0-3.2); LYMPHOCYTES % 38.6 % (18.0-39.1); MEAN CORPUSCULAR HEMOGLOBIN 33.2 pg (28-32); MEAN CORPUSCULAR HGB CONC 36.1 g/dL (31-35); MEAN CORPUSCULAR VOLUME 92.1 fL (81-99); MONOCYTES # (AUTO) 0.8 (0.2-0.8); NEUTROPHILS # (AUTO) 2.4 (2.1-6.9); NEUTROPHILS % 45.1 % (38.7-80.0); PLATELET COUNT 185 x10e3/uL (140-360); RED BLOOD COUNT 2.77 x10e6/uL (3.6-5.1)
[2018-07-11 06:46] LABS: ANION GAP 10.8 mmol/L (8-16); BLOOD UREA NITROGEN 7 mg/dL (7-26); BUN/CREATININE RATIO 10 (6-25); CALCIUM 8.2 mg/dL (8.4-10.2); CARBON DIOXIDE 24 mmol/L (22-29); CHLORIDE 106 mmol/L (98-107); CREATININE, SERUM 0.67 mg/dL (0.57-1.11); EST GLOMERULAR FILTRATION RATE > 60 ML/MIN (60-); GLUCOSE 106 mg/dL (74-118); POTASSIUM 3.8 mmol/L (3.5-5.1); SODIUM 137 mmol/L (136-145)
[2018-07-11] MEDS: CELECOXIB 100 MG CAP PO SCH (08:00)
[2018-07-11 08:03] VITALS: BP 90/55
[2018-07-11 08:27] VITALS: BP 114/58
[2018-07-11] MEDS: SODIUM CHLORIDE 0.9% IV SCH (08:56)
[2018-07-11] MEDS: [UNRECOGNIZED DRUG - OTHER] PO SCH (08:56)
[2018-07-11] MEDS: CEFOXITIN SODIUM IV SCH (08:56)
[2018-07-11] MEDS: [UNRECOGNIZED DRUG - OTHER] PO SCH (08:57)
[2018-07-11] MEDS: PANTOPRAZOLE SOD 40 MG TABEC PO SCH (08:57)
[2018-07-11] MEDS: DOCUSATE SODIUM 100 MG CAP PO SCH (08:57)
--- NOTE | 2018-07-11 09:02 | NUR ---
IMM letter delivered and explained to pt. She verbalized understanding. States she is ready to go home. Signed copy in chart. Copy placed in pt's transition of care folder.
--- NOTE | 2018-07-11 10:06 | NUR ---
PT COMPLAINT OF HAVING URGE TO URINATE. ASSESSED RODAS , NO OUTPUT ON BAG, ASSESSED INSERTION SITE. RODAS NOT ON URETHRA AT THIS TIME. DC RODAS. PT VOIDED 100 CC IN HAT. ASSESSED BLADDER (BLADDER SCAN ) 350CC SHOWING. REINSERTED RODAS CATH (16F), NOTED 400CC OF CLEAR YELLOW URINE IN BAG . PT STATES RELIEF UPON INSERTION. WILL PAGE MD GARCIA FOR ORDERS ON DC.
[2018-07-11 10:19] VITALS: BP 114/58
[2018-07-11 12:01] VITALS: BP 116/55
--- NOTE | 2018-07-11 13:23 | Discharge Summary ---
SHOVEL LOGGER: Dr. Anthony Wright. FINAL DIAGNOSES 1. Status post cystocele repair with a graft sling secondary to cystoceles and urinary incontinence associated with recurrent urinary tract infection. 2. Baseline gastric reflux, hypothyroidism. 3. Hypotension, stable and asymptomatic. 4. Chronic anemia. SUMMARY: This is a 72-year-old female with recurrent urinary tract infection and urinary incontinence with retention associated with the cystocele status post cystocele repair with the sling and graft on July 08, 2018. Patient admitted for postoperative care. Her blood pressure was low, but she is not symptomatic. At baseline, the patient's blood pressure in the systolic 90 to 100 per patient. She does have hypothyroidism and gastric reflux, which are stable. Her lab work showed sodium is 137, potassium is 3.8, chloride 106, bicarb 24, BUN 70, creatinine 0.6, and glucose 106. WBC 5.3, hemoglobin 9.2, hematocrit 25.5, and platelets is 185. Patient is otherwise stable. She has no gross bleed. No complications postoperative care. Patient is stable. She basically has a urinary retention after Harrison catheter was discontinued. Harrison catheter was placed back. The patient will go home today with Harrison catheter and will follow up with Dr. Anthony Wright for possible Harrison catheter removal in approximately less than a week. The patient is otherwise stable. All instructions given. All questions answered. The patient is otherwise stable. Resume home medication on discharge. New prescription from Dr. Anthony Wright are Levaquin 5 mg daily for 7 days, Tylenol Number 3 p.r.n. for pain, and Colace 100 mg b.i.d. Patient is stable for discharge home today. Followup as instructed. Job#: [id number] PARKER
--- NOTE | 2018-07-11 14:28 | NUR ---
MD JUVENCIO LARES STATES PT IS OK TO GO HOME IF RADHA STATES ITS OK MD RADHA LARES , INSTRUCTED PT TO FOLLOW UP AND TO TEACH LEG BAG EXCHANGE. TEACHING COMPLETE, PT IS READY FOR DC AT THIS TIME
[2018-07-11] MEDS ORDERED: LEVAQUIN500 MG PO (14:30)
[2018-07-11] MEDS ORDERED: TYLENOL # 31 EA PO (14:31)
[2018-07-11] MEDS ORDERED: COLACE100 MG PO (14:31)
--- NOTE | 2018-07-11 16:38 | NUR ---
PT OFF UNIT TO HOME
== END 2018-07-11 16:27 | disposition home or self-care (01) | DRG 748 ==
LOC: OR 08:11 → PACU V 13:20 → MED/SURG 18:41
PROVIDERS: ADMIT Internal Medicine; ATTEND Internal Medicine
PROC: 0JUC0JZ Supplement of Pelvic Region Subcutaneous Tissue and Fascia with Synthetic Substitute, Open Approach (ICD-10-PCS; principal; 2018-07-08 11:33)
DX: N81.10 Cystocele, unspecified (principal); R32 Unspecified urinary incontinence; N39.46 Mixed incontinence; I10 Essential (primary) hypertension; K21.9 Gastro-esophageal reflux disease without esophagitis; M48.00 Spinal stenosis, site unspecified; M06.9 Rheumatoid arthritis, unspecified; Z87.440 Personal history of urinary (tract) infections; Z80.8 Family history of malignant neoplasm of other organs or systems; N81.89 Other female genital prolapse; R35.1 Nocturia; N32.81 Overactive bladder; N95.2 Postmenopausal atrophic vaginitis; N36.41 Hypermobility of urethra; E03.9 Hypothyroidism, unspecified; I95.9 Hypotension, unspecified; D64.9 Anemia, unspecified; E87.6 Hypokalemia
CPT/HCPCS: 36415; 71046; 74420; 80048; 83735; 85025; 93005; J0694; J1100; J2001; J2250; J2270; J2405; J7050